=== PATIENT | female | born 1935 | race Caucasian/White ===

== ENCOUNTER 2019-11-22 02:46 | Observation (INO) ==
[2019-11-22] MEDS ORDERED: SODIUM CHLORIDE 0.9% 500 ML IV STA (03:06)
[2019-11-22] MEDS ORDERED: hydrALAZINE 20 MG/1 ML VIAL IV STA (03:06)
[2019-11-22 03:34] LABS: Basophils # 0.1 10*3/uL (0.0-0.2); Eosinophils # 0.1 10*3/uL (0.0-0.87); Eosinophils % 1.2 % (0.00-10.9); Hematocrit 43.5 VOL% (35.7-47.0); Hemoglobin 14.2 GM/DL (12.0-16.0); Immature Granulocytes % 0.4 %; Immature Granulocytes Absolute 0.03 #; Lymphocytes # 2.3 10*3/uL (1.4-4.0); Lymphocytes % 29.8 % (21.3-54.2); Mean Corpuscular HGB Conc 32.6 GM/DL (32-36); Mean Corpuscular Volume 100.2 FL (87-102); Mean Platelet Volume 10.4 FL (9.6-12.0); Monocytes % 8.5 % (1.7-12.7); Neutrophils % 59.1 % (38.7-73.9); Platelet Count 223 T/CUMM (130-400); Red Blood Count 4.34 MC/CUMM (3.8-5.5); Red Cell Distribution Width 13.5 % (9.3-17.3); White Blood Count 7.7 T/CUMM (4-12)
[2019-11-22 03:40] LABS: Apearance,Urine CLOUDY (Clear); Bacteria,Urine Many /HPF (Few); Bilirubin,Urine Negative (Negative); Blood, Urine Negative (Negative); Glucose,Urine (UA) Negative (Negative); Ketones,Urine Negative (Negative); Mucus,Urine Few /LPF (Occasional); Nitrite,Urine Positive (Negative); Protein,Urine 30 MG/DL; RBC,Urine 8 /HPF (0-4); Squamous Epithelial Cell,Urine Moderate /HPF (0-10); Urine Color Amber (Yellow); Urine Specific Gravity 1.018 (1.001-1.035); Urine Urobilinogen < 2.0 EU/DL (0.2-1.0); WBC,Urine 131 /HPF (0-6)
[2019-11-22 03:44] LABS: Barbiturates Screen,Urine Negative (Negative); Benzodiazepines Screen,Urine Negative (Negative); Cannabinoid Screen,Urine Negative (Negative); Opiate Screen,Urine Negative (Negative); Phencyclidine Screen,Urine Negative (Negative)
[2019-11-22 03:47] LABS: INR 0.9; PT Patient Result 10.1 SECS (9.8-11.9)
[2019-11-22] MEDS ORDERED: cefTRIAXone 1,000 MG in SODIUM CHLORIDE 0.9% 100 ML IV STA (03:52)
[2019-11-22 03:58] LABS: Alanine Aminotransferase 16 U/L (13-56); Albumin 3.7 G/DL (3.4-5.0); Alkaline Phosphatase 80 U/L (45-117); Aspartate Amino Transferase 19 U/L (0-37); Blood Urea Nitrogen 12 MG/DL (7-18); Calcium 9.8 MG/DL (8.5-10.1); Estimated Glom Filtration Rate 51 ML/MIN; Glucose 130 MG/DL (74-106); Osmolality,Calculated 282.3 MOS/KG (273-304); Total Protein 7.6 G/DL (6.4-8.3)
[2019-11-22] MEDS ORDERED: ONDANSETRON 4 MG/2 ML VIAL IV PRN (04:09)
[2019-11-22] MEDS ORDERED: hydrALAZINE 20 MG/1 ML VIAL IV PRN (04:09)
[2019-11-22] MEDS ORDERED: ACETAMINOPHEN 325 MG TABLET PO PRN (04:09)
[2019-11-22] MEDS ORDERED: GLUCAGON 1 MG VIAL IM PRN (04:09)
[2019-11-22] MEDS ORDERED: DEXTROSE 50% 25 GM/50 ML VIAL IV PRN (04:09)
[2019-11-22] MEDS ORDERED: SODIUM CHLORIDE 0.9% 1,000 ML IV SCH (04:30)
[2019-11-22] MEDS ORDERED: ENOXAPARIN 40 MG/0.4 ML SYRINGE SUBCUT SCH (08:00)
[2019-11-22] MEDS ORDERED: PANTOPRAZOLE 40 MG TABLET PO SCH (09:00)
[2019-11-22] MEDS ORDERED: METOPROLOL TARTRATE 50 MG TABLET PO SCH (10:17)
[2019-11-22] MEDS ORDERED: ASPIRIN CHEW 81 MG TABLET PO ONE (10:48)
[2019-11-22 15:50] VITALS: BP 150/77
[2019-11-23] MEDS ORDERED: cefTRIAXone 1,000 MG in SYRINGE 1 EACH IV SCH (04:00)
[2019-11-23] MEDS ORDERED: ASPIRIN CHEW 81 MG TABLET PO SCH (09:00)
== END 2019-11-22 16:20 | disposition home or self-care (01) ==
LOC: N.ED 02:46 → N.EDINP 02:46 → N.TELES 04:50
PROVIDERS: ADMIT Internal Medicine; ATTEND Internal Medicine